=== PATIENT | male | born 1950 | race Caucasian/White ===

== ENCOUNTER 2024-03-20 11:25 | Emergency (ER) | payer MEDICARE, SELFPAY ==
[2024-03-20] VITALS (26 sets, daily range): BP systolic 110–141; BP diastolic 54–76; PULSE 74–100; RESP 10–26; TEMP 37.1–37.9; O2SAT 96–99; BMI 19.0
[2024-03-20 12:35] LABS: Add Manual Diff / Slide Review NO; Basophils Absolute Auto 0 /uL (0-100); Basophils Percent Auto 0.4 % (0-2); Eosinophils Absolute Auto 300 /uL (0-450); Eosinophils Percent Auto 2.3 % (2-4); Hematocrit 32.6 % (41-53); Hemoglobin 10.7 g/dL (13.5-17.5); Lymphocytes Absolute Auto 4100 /uL (1100-4500); Lymphocytes Percent Auto 29.9 % (25-40); Mean Corpuscular HGB Conc 32.9 % (30-36); Mean Corpuscular Hemoglobin 29.7 PG (26-34); Mean Corpuscular Volume 90.3 fL (80-100); Monocytes Absolute Auto 600 /uL (0-900); Monocytes Percent Auto 4.1 % (3-14); Neutrophils Absolute Auto 8600 /uL (1500-7000); Neutrophils Percent Auto 63.3 % (50-75); Platelet Count 162 X10^3/uL (150-400); Red Blood Cell Count 3.61 X10^6/uL (4.5-5.9); Red Cell Distribution Width 13.5 % (11.6-14.8); White Blood Cell Count 13.6 X10^3/uL (4.5-11.0)
[2024-03-20 12:46] LABS: Adenovirus Not Detected (Not Detect); B. parapertussis Not Detected (Not Detecte); Bordetella pertussis Not Detected (Not Detect); Chlamydophila pneumoniae Not Detected (Not Detect); Coronavirus 229E Not Detected (Not Detect); Coronavirus HKU1 Not Detected (Not Detect); Coronavirus NL 63 Not Detected (Not Detect); Coronavirus OC43 Not Detected (Not Detect); Human Metapneumovirus Not Detected (Not Detect); Human Rhinovirus/Enterovirus Not Detected (Not Detect); Influenza A Not Detected (Not Detect); Influenza B Not Detected (Not Detect); Mycoplasma pneumoniae Not Detected (Not Detect); Parainfluenza Virus 1 Not Detected (Not Detect); Parainfluenza Virus 2 Not Detected (Not Detect); Parainfluenza Virus 3 Not Detected (Not Detect); Parainfluenza Virus 4 Not Detected (Not Detect); Respiratory Syncytial Virus Not Detected (Not Detect); SARS- CoV-2 Not Detected (Not Detecte)
[2024-03-20 12:48] LABS: Lactate (Lactic Acid) 1.2 mmol/L (0.7-2.1)
[2024-03-20 12:49] LABS: Alanine Aminotransferase 72 IU/L (<50); Albumin 3.8 g/dL (3.5-5.0); Albumin Globulin Ratio 0.9 (1.0-2.8); Alkaline Phosphatase 60 U/L (38-126); Aspartate Aminotransferase 59 IU/L (17-59); BUN Creatinine Ratio 12.2 (6-22); Bilirubin Total 0.6 mg/dL (0.2-1.3); Blood Urea Nitrogen 84 mg/dL (9-20); Calcium 9.7 mg/dL (8.4-10.2); Carbon Dioxide 21 mmol/L (22-32); Chloride 99 mmol/L (98-107); Estimated Glomerular Filt Rate 8 mL/min (>60); Globulin 4.2 g/dL (1.7-4.1); Glucose 109 mg/dL (80-110); HEMOLYSIS < 15 (0-50); Sodium 129 mmol/L (137-145)
[2024-03-20 12:56] LABS: Potassium 6.9 mmol/L (3.4-5.1)
--- NOTE | 2024-03-20 13:17 | DI.RAD.S_ITS ---
PROCEDURE: XR CHEST 1V INDICATIONS: fever TECHNIQUE: One view of the chest was acquired. COMPARISON: None. FINDINGS: Surgical changes and devices: None. Lungs and pleura: Lungs are clear. No pleural effusions or pneumothorax. Mediastinum: Mediastinal contours appear normal. Heart size is normal. Bones and chest wall: No suspicious bony lesions. Overlying soft tissues appear unremarkable. IMPRESSION: No acute cardiopulmonary abnormality is seen. Dictated by: Ji Loaiza M.D. on 03/20/2024 at 13:38 Approved by: Ji Loaiza M.D. on 03/20/2024 at 13:39
--- NOTE | 2024-03-20 13:24 | ED.WEAKNESS ---
HPI - Weakness General Chief complaint: Weakness Stated complaint: Tired, confused, runny nose Time Seen by Provider: 03/20/24 12:01 History of Present Illness HPI Narrative: Patient 74-year-old male history of glaucoma BPH heart failure with preserved EF fatigue severe protein malnutrition dysphagia recent admission to [facility] with KATHERIN. According to family creatinine went back down to 2 was thought to be secondary to dehydration. They been having some issues with his kidneys for last couple of weeks. He is got severely poor intake in his malnourished. He was discharged 3 days ago over the weekend he has been extremely fatigued tired and nipple temperature today. He is ongoing issues with swallowing they put him on a compassionate diet in the hospital. gave him some corn 2 days ago thought he might have choked on it. He denies any sort of cough or shortness of breath. Related Data Allergies Allergy/AdvReac Type Severity Reaction Status Date / Time No Known Drug Allergies Allergy Verified 03/20/24 11:38 Patient History Social History Smoking Status: Unknown if ever smoked Smoking Status: Unknown if ever smoked alcohol intake frequency: other Substance Use Type: does not use Exam Initial Vital Signs Initial Vital Signs: Vital Signs Temperature 100.2 F H 03/20/24 11:38 Pulse Rate 100 H 03/20/24 11:38 Respiratory Rate 18 03/20/24 11:38 Blood Pressure 115/54 L 03/20/24 11:38 Pulse Oximetry 98 03/20/24 11:38 Oxygen Delivery Method Room Air 03/20/24 11:38 GENERAL: Alert 74-year-old male and in [no acute] distress. HEENT: Head atraumatic,EOMI, pupils reactive, face symmetric, [moist] mucous membranes CARDIOVASCULAR: Regular rate and rhythm without murmurs, rubs or gallops. RESPIRATORY: Breath sounds equal bilaterally, no wheezes rales or rhonchi. ABDOMEN: Soft, nontender. Normoactive bowel sounds all 4 quadrants. No guarding or rebound. EXTREMITIES: Normal range of motion, no clubbing or edema. Neurovascularly intact NEUROLOGICAL: Alert and oriented x4.Normal gait and speech. Cranial nerves II through XII grossly intact. SKIN: Warm, dry, no laceration, no petechiae, no rashes or lesions. Course Orders Ordered: ED Orders 03/20/24 12:22 CBC Auto Diff [Complete Blood Count AUTO DIFF] Stat CMP [Comprehensive Metabolic Panel] Stat Lactate (Lactic Acid) Stat Procalcitonin Stat 03/20/24 12:41 Blood Culture Stat 03/20/24 13:17 Chest [XR chest 1V] Stat 03/20/24 13:50 UA Complete [Urinalysis and Microscopic] Stat Urine Culture Stat 03/20/24 14:07 EKG-12 Lead Stat 03/20/24 15:00 BMP [Basic Metabolic Panel] Stat 03/21/24 03:00 BMP [Basic Metabolic Panel] Stat CBC Auto Diff [Complete Blood Count AUTO DIFF] Stat Procalcitonin Stat Dextrose (D10w) 250 mls @ 100 mls/hr IV CONT AARON Last Infusion: 03/20/24 17:55 Dose: Infused Documented By: Admin: 03/20/24 15:25 Dose: 100 mls/hr Documented By: ABHI Sodium Chloride (Normal Saline 0.9%) 1,000 mls @ 100 mls/hr IV CONT AARON Cefepime HCl 1 gm/ Sodium (Chloride) 100 mls @ 200 mls/hr IV NOW ONE Stop: 03/21/24 01:01 Discontinued Medications Dextrose (Dextrose 50 % In Water 25 Gm/50 Ml Syringe) 25 gm IV NOW ONE Stop: 03/20/24 13:18 Last Admin: 03/20/24 13:38 Dose: 25 gm Documented By: ARCHIE Furosemide (Furosemide 40 Mg/4 Ml Vial) 20 mg IV NOW ONE Stop: 03/20/24 13:18 Last Admin: 03/20/24 13:41 Dose: 20 mg Documented By: ARCHIE Sodium Chloride (Normal Saline 0.9%) 1,000 mls @ 1,000 mls/hr IV BOLUS ONE Stop: 03/20/24 14:16 Last Infusion: 03/20/24 15:05 Dose: Infused Documented By: Admin: 03/20/24 13:48 Dose: 1,000 mls/hr Documented By: ARCHIE Cefepime HCl 1 gm/ Sodium (Chloride) 100 mls @ 200 mls/hr IV NOW ONE Stop: 03/20/24 13:18 Last Infusion: 03/20/24 14:42 Dose: Infused Documented By: Admin: 03/20/24 13:48 Dose: 200 mls/hr Documented By: ARCHIE Insulin Human Regular (Insulin Regular 100 Unit/Ml 3 Ml Vial) 5 unit IV NOW ONE Stop: 03/20/24 13:18 Last Admin: 03/20/24 13:36 Dose: 5 unit Documented By: ARCHIE Co-signed By: MIAN Lidocaine HCl (Lidocaine 2% (Glydo) 6 Ml Gel) 6 ml TOP NOW ONE Stop: 03/20/24 14:47 Last Admin: 03/20/24 14:46 Dose: 6 ml Documented By: ABHI Vital Signs Vital signs: Vital Signs - 8 hr 03/20/24 13:30 03/20/24 13:30 03/20/24 13:45 Pulse Rate 84 88 Respiratory Rate Blood Pressure 115/60 Pulse Oximetry 97 98 Oxygen Delivery Method 03/20/24 13:45 03/20/24 14:00 03/20/24 14:00 Pulse Rate 86 Respiratory Rate Blood Pressure 126/62 120/56 L Pulse Oximetry 99 Oxygen Delivery Method 03/20/24 14:30 03/20/24 14:30 03/20/24 15:00 Pulse Rate 87 80 Respiratory Rate 26 H 18 Blood Pressure 122/58 L Pulse Oximetry 97 99 Oxygen Delivery Method Room Air Room Air 03/20/24 15:00 03/20/24 15:30 03/20/24 15:30 Pulse Rate 79 Respiratory Rate 18 Blood Pressure 122/60 110/58 L Pulse Oximetry 99 Oxygen Delivery Method Room Air 03/20/24 16:00 03/20/24 16:00 03/20/24 16:30 Pulse Rate 75 Respiratory Rate 15 Blood Pressure 125/61 125/60 Pulse Oximetry 98 Oxygen Delivery Method Room Air 03/20/24 16:30 03/20/24 17:00 03/20/24 17:00 Pulse Rate 77 77 Respiratory Rate 15 17 Blood Pressure 131/65 Pulse Oximetry 99 99 Oxygen Delivery Method 03/20/24 17:30 03/20/24 17:30 03/20/24 18:00 Pulse Rate 78 78 Respiratory Rate 16 16 Blood Pressure 126/62 Pulse Oximetry 99 98 Oxygen Delivery Method Room Air 03/20/24 18:00 03/20/24 18:30 03/20/24 18:30 Pulse Rate 77 Respiratory Rate 10 L Blood Pressure 127/60 126/60 Pulse Oximetry 97 Oxygen Delivery Method Room Air 03/20/24 19:00 03/20/24 19:00 03/20/24 19:30 Pulse Rate 79 79 Respiratory Rate 18 21 Blood Pressure 124/64 Pulse Oximetry 97 97 Oxygen Delivery Method Room Air 03/20/24 19:30 Pulse Rate Respiratory Rate Blood Pressure 141/67 H Pulse Oximetry Oxygen Delivery Method MDM - Weakness Lab Data 03/20/24 12:22 03/20/24 15:00 Labs: Lab Results 03/20/24 03/20/24 03/20/24 Range/Units 11:50 12:22 13:50 WBC 13.6 H (4.5-11.0) X10^3/uL RBC 3.61 L (4.5-5.9) X10^6/uL Hgb 10.7 L (13.5-17.5) g/dL Hct 32.6 L (41-53) % MCV 90.3 (80-100) fL MCH 29.7 (26-34) PG MCHC 32.9 (30-36) % RDW 13.5 (11.6-14.8) % Plt Count 162 (150-400) X10^3/uL Neut % (Auto) 63.3 (50-75) % Lymph % (Auto) 29.9 (25-40) % Mclennan % (Auto) 4.1 (3-14) % Eos % (Auto) 2.3 (2-4) % Baso % (Auto) 0.4 (0-2) % Neut # (Auto) 8600 H (5228-9581) /uL Lymph # (Auto) 4100 (5984-9717) /uL Mclennan # (Auto) 600 (0-900) /uL Eos # (Auto) 300 (0-450) /uL Baso # (Auto) 0 (0-100) /uL Sodium 129 L (137-145) mmol/L Potassium 6.9 H* (3.4-5.1) mmol/L Chloride 99 (98-107) mmol/L Carbon Dioxide 21 L (22-32) mmol/L BUN 84 H (9-20) mg/dL Creatinine 6.89 H (0.66-1.25) mg/dL Estimated GFR 8 L (>60) mL/min BUN/Creatinine Ratio 12.2 (6-22) Glucose 109 (80-110) mg/dL Lactate 1.2 (0.7-2.1) mmol/L Calcium 9.7 (8.4-10.2) mg/dL Total Bilirubin 0.6 (0.2-1.3) mg/dL AST 59 (17-59) IU/L ALT 72 H (<50) IU/L Alkaline Phosphatase 60 (38-126) U/L Total Protein 8.0 (6.3-8.2) g/dL Albumin 3.8 (3.5-5.0) g/dL Globulin 4.2 H (1.7-4.1) g/dL Albumin/Globulin Ratio 0.9 L (1.0-2.8) Procalcitonin 9.50 H (<0.5) ng/mL Urine Color Yellow Urine Appearance Clear Urine pH 7.0 (4.5-8.0) Ur Specific Luana 1.010 (1.000-1.035) Urine Protein 2+ H (Negative) Urine Glucose (UA) Negative (Negative) g/dL Urine Ketones Negative (NEGATIVE) Urine Occult Blood 1+ H (Negative) Urine Nitrate Negative (Negative) Urine Bilirubin Negative (NEGATIVE) Urine Urobilinogen 0.2 (0.2) E.U./dL Ur Leukocyte Esterase 1+ H (NEGATIVE) Urine RBC 1-5/hpf (0-5/HPF) Urine WBC 5-10/hpf H (0-5/HPF) Ur Squamous Epith Cells None seen (0-5/HPF) Urine Bacteria None seen (None) Ur Culture Indicated? Specimen cultured Vol Urine Centrifuged 10ml (spun) Chlamy pneumoniae PCR Not detected (Not Detect) Adenovirus (PCR) Not detected (Not Detect) B. pertussis DNA (PCR) Not detected (Not Detect) B.parapertussis DNA PCR Not detected (Not Detecte) Coronavirus OC43 (PCR) Not detected (Not Detect) Coronavirus HKU1 (PCR) Not detected (Not Detect) Coronavirus 229E (PCR) Not detected (Not Detect) SARS-CoV-2 (PCR) Not detected (Not Detecte) Coronavirus NL63 (PCR) Not detected (Not Detect) Human Metapneumovir PCR Not detected (Not Detect) Influenza Type A (PCR) Not detected (Not Detect) Influenza Type B (PCR) Not detected (Not Detect) M. pneumoniae (PCR) Not detected (Not Detect) Parainfluenza 1 (PCR) Not detected (Not Detect) Parainfluenza 2 (PCR) Not detected (Not Detect) Parainfluenza 3 (PCR) Not detected (Not Detect) Parainfluenza 4 (PCR) Not detected (Not Detect) RSV (PCR) Not detected (Not Detect) Entero/Rhino (PCR) Not detected (Not Detect) 03/20/24 Range/Units 15:00 WBC (4.5-11.0) X10^3/uL RBC (4.5-5.9) X10^6/uL Hgb (13.5-17.5) g/dL Hct (41-53) % MCV (80-100) fL MCH (26-34) PG MCHC (30-36) % RDW (11.6-14.8) % Plt Count (150-400) X10^3/uL Neut % (Auto) (50-75) % Lymph % (Auto) (25-40) % Mclennan % (Auto) (3-14) % Eos % (Auto) (2-4) % Baso % (Auto) (0-2) % Neut # (Auto) (9726-9754) /uL Lymph # (Auto) (6764-4637) /uL Mclennan # (Auto) (0-900) /uL Eos # (Auto) (0-450) /uL Baso # (Auto) (0-100) /uL Sodium 128 L (137-145) mmol/L Potassium 5.2 H D (3.4-5.1) mmol/L Chloride 101 (98-107) mmol/L Carbon Dioxide 20 L (22-32) mmol/L BUN 82 H (9-20) mg/dL Creatinine 6.63 H (0.66-1.25) mg/dL Estimated GFR 8 L (>60) mL/min BUN/Creatinine Ratio 12.4 (6-22) Glucose 56 L (80-110) mg/dL Lactate (0.7-2.1) mmol/L Calcium 8.9 (8.4-10.2) mg/dL Total Bilirubin (0.2-1.3) mg/dL AST (17-59) IU/L ALT (<50) IU/L Alkaline Phosphatase (38-126) U/L Total Protein (6.3-8.2) g/dL Albumin (3.5-5.0) g/dL Globulin (1.7-4.1) g/dL Albumin/Globulin Ratio (1.0-2.8) Procalcitonin (<0.5) ng/mL Urine Color Urine Appearance Urine pH (4.5-8.0) Ur Specific Luana (1.000-1.035) Urine Protein (Negative) Urine Glucose (UA) (Negative) g/dL Urine Ketones (NEGATIVE) Urine Occult Blood (Negative) Urine Nitrate (Negative) Urine Bilirubin (NEGATIVE) Urine Urobilinogen (0.2) E.U./dL Ur Leukocyte Esterase (NEGATIVE) Urine RBC (0-5/HPF) Urine WBC (0-5/HPF) Ur Squamous Epith Cells (0-5/HPF) Urine Bacteria (None) Ur Culture Indicated? Vol Urine Centrifuged Chlamy pneumoniae PCR (Not Detect) Adenovirus (PCR) (Not Detect) B. pertussis DNA (PCR) (Not Detect) B.parapertussis DNA PCR (Not Detecte) Coronavirus OC43 (PCR) (Not Detect) Coronavirus HKU1 (PCR) (Not Detect) Coronavirus 229E (PCR) (Not Detect) SARS-CoV-2 (PCR) (Not Detecte) Coronavirus NL63 (PCR) (Not Detect) Human Metapneumovir PCR (Not Detect) Influenza Type A (PCR) (Not Detect) Influenza Type B (PCR) (Not Detect) M. pneumoniae (PCR) (Not Detect) Parainfluenza 1 (PCR) (Not Detect) Parainfluenza 2 (PCR) (Not Detect) Parainfluenza 3 (PCR) (Not Detect) Parainfluenza 4 (PCR) (Not Detect) RSV (PCR) (Not Detect) Entero/Rhino (PCR) (Not Detect) Point of Care Testing Glucose POC 126 Imaging Data Chest x-ray: Radiologist Impression: PROCEDURE: XR CHEST 1V INDICATIONS: fever TECHNIQUE: One view of the chest was acquired. COMPARISON: None. FINDINGS: Surgical changes and devices: None. Lungs and pleura: Lungs are clear. No pleural effusions or pneumothorax. Mediastinum: Mediastinal contours appear normal. Heart size is normal. Bones and chest wall: No suspicious bony lesions. Overlying soft tissues appear unremarkable. IMPRESSION: No acute cardiopulmonary abnormality is seen. Dictated by: Ji Loaiza M.D. on 03/20/2024 at 13:38 Approved by: Ji Loaiza M.D. 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 Pertinent findings: Potassium 6.9-->5.2 creatinine 6.89--> 6.6 WBC 13, lactate 1.2, procalcitonin 9.5 Urinalysis negative Respiratory panel negative Independently reviewed EKG as above normal sinus rhythm no peaked T-waves Imaging studies independently reviewed: No acute cardiopulmonary process Consultations: 1520 Dr. Preciado at [facility] team patient's symptoms test results request for repeat potassium if still greater than 6 then we will happily accepted ICU if less than 6 then recommends talking to hospital 1545 Dr. Thompson updated on patient's symptoms test results heavily accepts patient to the medical floor Treatments: Cefepime Lasix 40, normal saline, 5 units of insulin IV, Lokelma, dextrose 10% Re-evaluations: Patient got hypoglycemic after insulin was temporarily placed on dextrose. Repeat blood work does show potassium improvement Discussion: Patient 74-year-old male chronically ill presents today with weakness. He had a low-grade temperature of a 100.3? found to have leukocytosis of 13. There was concern for sepsis and infection but no sources actually found. Chest x-ray was negative urinalysis was negative respiratory panel negative. He was empirically given 1 dose of cefepime. According to family creatinine was down into the 2-3 range it is significantly elevated again at 6. He has not had a lot of urine output no evidence of urinary retention. Potassium has improved with hyperkalemia treatment. He never had any EKGs changes calcium was not given and potassium quickly improved. At this time due to significant KATHERIN and oliguria patient transferred to higher level of care for nephrology Patient signed out to Dr. Lunsford Discharge Plan Departure Patient Disposition: [facility] Clinical Impression: Acute kidney injury, Acute hyperkalemia
[2024-03-20] MEDS: INSULIN REGULAR 100 UNIT/ML 3 ML VIAL IV (13:36)
[2024-03-20] MEDS: DEXTROSE 50 % IN WATER 25 GM/50 ML SYRINGE IV (13:38)
[2024-03-20] MEDS: FUROSEMIDE 40 MG/4 ML VIAL 20 MG IV (13:41)
[2024-03-20] MEDS: SODIUM ZIRCONIUM CYCLOSILICATE 10 GM POWD.PACK PO (13:42)
[2024-03-20] MEDS: SODIUM CHLORIDE 0.9% 1,000 ML 1000 ML IV (13:48)
[2024-03-20] MEDS: CEFEPIME 1 GM in SODIUM CHLORIDE 0.9% 100 ML IV (13:48)
[2024-03-20 13:57] LABS: Appearance Urine UA CLEAR; Bilirubin Urine UA NEGATIVE (NEGATIVE); Color Urine UA YELLOW; Glucose Urine UA NEGATIVE (Negative); Ketones Urine UA NEGATIVE (NEGATIVE); Leukocyte Esterase Urine UA 1+ (NEGATIVE); Nitrite Urine UA NEGATIVE (Negative); Occult Blood Urine UA 1+ (Negative); Protein Urine UA 2+ (Negative); Urobilinogen Urine UA 0.2 E.U./dL (0.2)
[2024-03-20 13:59] LABS: Urine Volume 10mL (spun)
[2024-03-20 14:00] LABS: Bacteria Urine None Seen; RBC Urine 1-5/HPF (0-5/HPF); Squamous Epithelial Cell Urine None Seen (0-5/HPF); WBC Urine 5-10/HPF (0-5/HPF)
[2024-03-20 14:01] LABS: Culture Indicated Urine Specimen Cultured
--- NOTE | 2024-03-20 14:20 | EKG_ITS ---
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
[2024-03-20] MEDS: LIDOCAINE 2% (GLYDO) 6 ML GEL TOP (14:46)
[2024-03-20] MEDS: DEXTROSE 10 % IN WATER 250 ML 100 ML IV (15:25)
[2024-03-20 15:37] LABS: BUN Creatinine Ratio 12.4 (6-22); Blood Urea Nitrogen 82 mg/dL (9-20); Calcium 8.9 mg/dL (8.4-10.2); Carbon Dioxide 20 mmol/L (22-32); Chloride 101 mmol/L (98-107); Estimated Glomerular Filt Rate 8 mL/min (>60); Glucose 56 mg/dL (80-110); HEMOLYSIS < 15 (0-50); Potassium 5.2 mmol/L (3.4-5.1); Sodium 128 mmol/L (137-145)
[2024-03-20] MEDS: SODIUM CHLORIDE 0.9% 1,000 ML 100 ML IV (19:50)
--- NOTE | 2024-03-20 21:54 | PC.NURSE ---
Right eye pupil size 5mm- pt has glaucoma and his just administered his home eye drops, unsure of the name. Left eye pupil size 3mm normal PERRLA
--- NOTE | 2024-03-20 22:05 | PC.NURSE ---
f/u with [facility] re:bed status. at this time they do not anticipate a bed until after 11 am on 03/21/24
--- NOTE | 2024-03-20 23:07 | PC.NURSE ---
Called patient's Emilio. Per patient request, OK to leave message to inform that the patient is staying here overnight.
[2024-03-21] VITALS (27 sets, daily range): BP systolic 110–157; BP diastolic 55–82; PULSE 63–75; RESP 11–21; TEMP 36.6; O2SAT 94–99
[2024-03-21] MEDS: CEFEPIME 1 GM in SODIUM CHLORIDE 0.9% 100 ML IV (02:00)
[2024-03-21 03:37] LABS: Add Manual Diff / Slide Review NO; Basophils Absolute Auto 100 /uL (0-100); Basophils Percent Auto 0.5 % (0-2); Eosinophils Absolute Auto 700 /uL (0-450); Eosinophils Percent Auto 6.5 % (2-4); Hematocrit 26.9 % (41-53); Hemoglobin 9.2 g/dL (13.5-17.5); Lymphocytes Absolute Auto 4800 /uL (1100-4500); Lymphocytes Percent Auto 46.6 % (25-40); Mean Corpuscular HGB Conc 34.2 % (30-36); Mean Corpuscular Hemoglobin 30.5 PG (26-34); Mean Corpuscular Volume 89.3 fL (80-100); Monocytes Absolute Auto 800 /uL (0-900); Monocytes Percent Auto 7.9 % (3-14); Neutrophils Absolute Auto 4000 /uL (1500-7000); Neutrophils Percent Auto 38.5 % (50-75); Platelet Count 136 X10^3/uL (150-400); Red Blood Cell Count 3.01 X10^6/uL (4.5-5.9); Red Cell Distribution Width 13.9 % (11.6-14.8); White Blood Cell Count 10.4 X10^3/uL (4.5-11.0)
[2024-03-21 03:41] LABS: BUN Creatinine Ratio 11.8 (6-22); Blood Urea Nitrogen 92 mg/dL (9-20); Calcium 8.9 mg/dL (8.4-10.2); Carbon Dioxide 19 mmol/L (22-32); Chloride 101 mmol/L (98-107); Estimated Glomerular Filt Rate 7 mL/min (>60); Glucose 87 mg/dL (80-110); HEMOLYSIS < 15 (0-50); Sodium 128 mmol/L (137-145)
[2024-03-21 03:44] LABS: Potassium 6.1 mmol/L (3.4-5.1)
[2024-03-21 03:58] LABS: Procalcitonin 10.1 ng/mL (<0.5)
[2024-03-21] MEDS: INSULIN REGULAR 100 UNIT/ML 3 ML VIAL IV (04:08)
[2024-03-21] MEDS: DEXTROSE 50 % IN WATER 25 GM/50 ML SYRINGE IV (04:17)
[2024-03-21] MEDS: SODIUM ZIRCONIUM CYCLOSILICATE 10 GM POWD.PACK PO (04:20)
[2024-03-21] MEDS: SODIUM CHLORIDE 0.9% 1,000 ML 100 ML IV (05:39)
[2024-03-21 09:58] LABS: BUN Creatinine Ratio 11.2 (6-22); Blood Urea Nitrogen 94 mg/dL (9-20); Calcium 8.9 mg/dL (8.4-10.2); Carbon Dioxide 19 mmol/L (22-32); Chloride 100 mmol/L (98-107); Estimated Glomerular Filt Rate 6 mL/min (>60); Glucose 166 mg/dL (80-110); HEMOLYSIS < 15 (0-50); Sodium 127 mmol/L (137-145)
== END 2024-03-21 12:32 | disposition short-term general hospital (02) ==
PROVIDERS: Emergency Medicine; Emergency Provider Emergency Medicine
DX: N17.9 Acute kidney failure, unspecified (principal); E87.5 Hyperkalemia; R50.9 Fever, unspecified; E46 Unspecified protein-calorie malnutrition; Z68.1 Body mass index [BMI] 19.9 or less, adult; R79.89 Other specified abnormal findings of blood chemistry; I45.10 Unspecified right bundle-branch block
CPT/HCPCS: 36415; 71045; 80048; 80053; 81001; 82962; 83605; 84145; 85025; 87040; 87086; 87633; 93005; 96361; 96365; 96366; 96375; 96376; 99285; J0692; J1940